=== PATIENT | male | born 1950 | race African-American/Black ===

== ENCOUNTER 2022-05-15 07:13 | Emergency (ER) | payer OTHER ==
[~2022-05-15] VITALS: Ht 190.5 cm; Wt 81.0 kg
[2022-05-15 08:16] LABS: Mean Corpuscular Hgb Conc. 30.8 g/dL (32.0-36.0)
[2022-05-15 08:18] LABS: Hematocrit 29.1 % (41.0-53.0); Mean Corpuscular Hemoglobin 24.2 pg (28.0-32.0); Mean Corpuscular Volume 78.5 fL (80.0-100.0); Red Cell Distribution Width 16.6 % (11.8-14.3); White Blood Cell 2.5 10^3/uL (4.4-10.8)
[2022-05-15 08:29] LABS: Albumin 3.8 g/dL (3.4-5.0); Calcium 9.5 mg/dL (8.5-10.1); Potassium 4.1 mmol/L (3.5-5.1)
[2022-05-15 08:32] LABS: BUN/Creatinine Ratio 8.5; Bilirubin, Total 0.3 mg/dL (0.2-1.0); Total Protein 7.5 g/dL (6.4-8.2)
[2022-05-15 08:35] LABS: Band Neutrophils % (manual) 0; Blast Cells 0; Metamyelocytes % 0; Myelocytes % 0; Promyelocytes % 0
[2022-05-15] MEDS: MORPHINE SULFATE INJ 2 MG/ml SYRG IM ONE (09:07)
[2022-05-15] MEDS: ONDANSETRON ODT 4 MG TAB PO ONE (09:10)
[2022-05-15 09:45] VITALS: BP 109/62
[2022-05-15 13:02] LABS: Basophils % (manual) 1 (0.0-2.0); Eosinophils % (manual) 6 (0-7); Lymphocytes % (manual) 35 (10.0-50.0); Monocytes % (manual) 11 (0-12); Reactive Lymphocytes 1
== END 2022-05-15 10:34 | disposition left against medical advice (07) ==
LOC: ER 07:13
DX: D64.9 Anemia, unspecified (principal); K59.00 Constipation, unspecified; N40.0 Benign prostatic hyperplasia without lower urinary tract symptoms; E78.5 Hyperlipidemia, unspecified
CPT/HCPCS: 36415; 74176; 80053; 85007; 85027; 96372; 99284; J2270; Q0162

== ENCOUNTER 2025-07-20 11:56 | Outpatient (CLI) | payer OTHER ==
[2025-07-22 08:07] LABS: Prostate Specific Antigen 5.4 ng/mL (0.0-4.0)
== END 2025-07-20 17:00 | disposition home or self-care (01) ==
LOC: LAB 11:56
PROVIDERS: ATTEND Internal Medicine
DX: Z12.5 Encounter for screening for malignant neoplasm of prostate (principal)
CPT/HCPCS: 84153; 84154